=== PATIENT | female | born 1945 | race Caucasian/White ===

== ENCOUNTER 2018-06-02 19:08 | Inpatient (IN) | payer OTHER ==
[~2018-06-02] VITALS: Ht 154.9 cm; Wt 85.3 kg
--- NOTE | ~2018-06-02 | CON ---
[address] [address] CONSULTATION Name: FABRICE TREVINO Room: [address] IN M.R.#: [id number] Admission: 06/02/18 Attend Phys: Rod Razo, Discharge: Date of : 49 Report #: [id number] THIS REPORT FOR: //name// CC: Javier Razo DICTATED BY: Sandra DESIR DATE OF SERVICE: 06/04/2018 Please note at the time of this dictation, the patient was seen and physically examined by myself. REASON FOR CONSULTATION: Acute on chronic anemia. HISTORY OF PRESENT ILLNESS: This is a 73-year-old female who presented to the Emergency Room after being called by her PCP whom she saw last week for worsening of her fatigue and was told to go to the Emergency Room, because her hemoglobin was 6.2. The patient had stated that she had had normal stools without any diarrhea, no hematochezia that she had noted. She denied no vomiting; however, she has ongoing nausea, which she states over the last couple of weeks has worsened as well. She does take antiemetics to help with this. In reviewing her records, it was noted in 2013, she had gastroparesis documented by [facility] which showed after 2 hours, she was still retaining 96%. At 3 hours, she was at 70% and 4 hours was 32% and questioning the patient in regards to if she took metoclopramide at that time, she thinks that she did and that she had a reaction to taking it and that it made her lose her memory. The patient was seen by us back in also in 2013. She also underwent an EGD, which was completely normal. In 2017, she was seen again in the hospital for anemia, but did not get any EGD or colonoscopy done prior to her discharge. She came in as followup and was scheduled for an outpatient double, but family later canceled thinking that she would not be able to tolerate it. The patient is wheelchair bound due to her previous stroke in 2014. It would likely be that she needs to get a colonoscopy during this admission as well. She denies any bright red blood or any melena. She does state that prior to defecation, she will have a little bit of left lower quadrant pain that is only prior to her having a bowel movement. Her cares for her at home and he states he has only noticed every once in a while a streak of some bright red blood, but nothing overt and bleeding. The patient is on warfarin for her atrial fibrillation. ALLERGIES: INCLUDE BACTRIM. MEDICATIONS FROM HOME: Warfarin, simvastatin, Zoloft, melatonin, Zyrtec, Glucophage, Amaryl, Toprol, multivitamin, Lanoxin, Neurontin, Prinivil, hydrocodone, Protonix, mag ox, [place] [address] CONSULTATION Name: PATRIAJACOBFABRICE CASILLAS Room: [address]#: [id number] Admission: 06/02/18 Attend Phys: Rod Razo, Discharge: Date of : 49 Report #: [id number] PAST MEDICAL HISTORY: Hypertension, chronic atrial fib, diabetes, hypercholesterolemia. She had a stroke in 2007. PAST SURGICAL HISTORY: She has had nephrolithiasis with stent placement and a lithotripsy for stone manipulation in the past. FAMILY HISTORY: Negative. SOCIAL HISTORY: Denies any alcohol, tobacco or illegal drug use. REVIEW OF SYSTEMS: Twelve-point review of systems is essentially negative except what is mentioned in the HPI. PHYSICAL EXAMINATION: VITAL SIGNS: Temperature 36.4, pulse 81, respirations 16, blood pressure 179/69. HEART: Irregular rate and rhythm with murmur noted. LUNGS: Diminished, but clear. ABDOMEN: Soft, positive bowel sounds in all four quadrants with no masses or tenderness noted at this time. LABORATORY DATA: Hemoglobin in the ER was 7.1. She was 6.8 this morning, white count 9.3, MCV is 68.3, platelets 238. BUN is 12, creatinine is 0.9, GFR is 62. Her ferritin is 29. Iron is 20. PT is 17.9, INR is 1.8 and she did have a positive direct Babatunde. Fibrinogen was 399. D-dimer was 0.46. Chest x-ray showed some cardiomegaly and suggesting of some atelectasis. IMPRESSION: 1. Acute on chronic anemia, last seen in 2017 for similar cause, canceled EGD colon as an outpatient. 2. Nausea, recurrent, but worsening. 3. History of gastroparesis in 2013 from [facility] noted. 4. Anticoagulant therapy warfarin secondary to atrial fibrillation. 5. History of cerebrovascular accident. 6. Diabetes. PLAN: 1. Recheck a PT/INR this a.m. 2. EGD later today if INR improved. 3. The patient will likely need a colonoscopy before she leaves during this hospitalization since it has not been done and she canceled her outpatient back in 2017. 4. Await further recommendations from Dr. Cr after the procedure later today. [address] [address] CONSULTATION Name: FABRICE TREVINO Room: [address]#: [id number] Admission: 06/02/18 Attend Phys: Rod Razo, Discharge: Date of : 49 Report #: [id number] Thank you for allowing us to participate in this patient's care. Please do not hesitate to call with any questions in regard to this consult. By: 0902 1913Alli Cr MD /jonas
[~2018-06-02 19:08] MED LIST: ACETAMINOPHEN325 M1 PO; AMARYL4 MG PO; AMBIEN 10 MG TA10 MG PO; AMITRIPTYLINE H10 M1 PO; AMLODIPINE BESY10 MG PO; APAP500; CEFTIN 250 MG250 MG PO; CEFUROXIME250 MG PO; CELEXA; CIPRO PO; CIPRO500 MG PO; CIPRO500 MG/5 M; CIPROFLOXACIN500 M1 PO; COUMADIN 1MG TAB1 M1 PO; COUMADIN 2 MG TA2 M1 PO; COUMADIN 5 MG TA5 M1; COUMADIN 5 MG TA5 M1 PO; CYMBALTA30 MG PO; DIFLUCAN PO; DIFLUCAN150 MG PO; DIFLUCAN200 MG PO; DIGOXIN250 MCG PO; ERTACZO60 GM TP; FENTANYL PATCH75 MCG TOP; FLOMAX; FLOMAX PO; FLORASTOR250 MG PO; GLUCOPHAGE XR500 MG; GLUCOPHAGE XR500 MG PO; GLUCOPHAGE1000 MG PO; GLUCOPHAGE500 MG PO; HYDROCODON-ACE1 EAC7 PO; HYDROCODON-ACE1 EAC8 PO; KEFLEX250 MG PO; KEFLEX500 MG PO; LAMISIL15 GM TP; LANOXIN 0.250.25 M1 PO; LEVEMIR; LEVEMIR SUBQ; LIPITOR 20 MG T20 M1 PO; LISINOPRIL20 MG PO; LOPRESSOR 12.12.5 MG PO; LOPRESSOR25 PO; MACROBID 100 M100 M1 PO; MACROBID 100 M100 M2 PO; MACROBID OR; MAGNESIUM400 MG PO; MAGOX 400400 MG PO; METOPROLOL SUCC25 M1 PO; MYLANTA 12 OZ355 M1 PO; NEURONTIN 300300 M1 PO; NEURONTIN 300M300 M2 PO; NEURONTIN600 MG PO; NORVASC 5 MG TAB5 MG; NOVOLIN R100 UNIT/1 SUBQ; NOVOLOG100 UNIT/1; NOVOLOG100 UNIT/1 SUBQ; ONDANSETRON HCL4 M2 PO; ONE-A-DAY WOMENS PO; PANTOPRAZOLE SO40 M1 PO; PERCOCET PO; PRINIVIL10 MG PO; PRINIVIL20 MG PO; PROTONIX40 M1 PO; PROTONIX40 M2 PO; PYRIDIUM200 MG PO; SERTRALINE HCL50 MG PO; SIMVASTATIN20 MG PO; TOPROL XL25 MG; TOPROL XL25 MG PO; TYLENOL EX-STR500 M2; VAGIFEM10 MCG VAG; WARFARIN SODIUM2 MG PO; ZANAFLEX4 MG PO; ZANTAC; ZANTAC 150MG T150 M1 PO; ZESTRIL10 MG PO; ZOCOR; ZOCOR 20 MG TAB20 M1; ZOCOR 20 MG TAB20 M1 PO; ZOCOR20 MG PO
[2018-06-02 19:21] VITALS: BP 147/63
[2018-06-02 19:43] LABS: ABSOLUTE EOSINOPHILS 0.3 thou/uL (0.0-0.7); ABSOLUTE LYMPHOCYTES 1.4 thou/uL (0.8-5.3); ABSOLUTE MONOCYTES 0.5 thou/uL (0.0-1.2); ABSOLUTE NEUTROPHILS 5.8 thou/uL (1.6-8.1); BASOPHILS 0.6 %; EOSINOPHILS 4.2 %; HEMATOCRIT 21.7 % (37.0-47.0); LYMPHOCYTES 17.1 %; MCH 19.1 pg (26.0-34.0); MCHC 29.2 g/dL (28.0-37.0); MCV 65.4 fL (80.0-100.0); MONOCYTES 6.1 %; MPV 6.3 fl. (7.2-11.1); NUCLEATED RBCS 0 /100WBC; PLATELET COUNT* 292 thou/uL (150-400); RBC 3.31 mil/uL (4.20-5.00); RDW-CV 20.7 % (10.5-14.5); WBC 8.1 thou/uL (4.0-11.0)
[2018-06-02 19:46] LABS: HEMOGLOBIN 6.3 gm/dL (12.0-15.0)
[2018-06-02 19:54] LABS: INR 1.8; PROTIME 17.9 Seconds (9.20-11.50)
[2018-06-02 20:00] LABS: ANION GAP 11 mmol/L (7-16); BUN 18 mg/dL (7-18); CALCIUM 8.8 mg/dL (8.5-10.1); CHLORIDE 107 mmol/L (98-107); CO2 27 mmol/L (21-32); CREATININE 1.1 mg/dL (0.6-1.3); GLUCOSE 142 mg/dL (70-99); POTASSIUM 4.7 mmol/L (3.5-5.1); SODIUM 145 mmol/L (136-145); TROPONIN-I LEVEL <0.06 ng/mL (<0.06)
[2018-06-02] MEDS ORDERED: COUMADIN 4 MG TA4 M1 PO (20:02)
[2018-06-02] MEDS ORDERED: ALLERGY10 M1 PO (20:03)
[2018-06-02] MEDS ORDERED: ZOLOFT 50 MG TA50 M1 PO (20:03)
[2018-06-02] MEDS ORDERED: MELATONIN5 M1 PO (20:03)
[2018-06-02] MEDS ORDERED: SIMVASTATIN40 MG PO (20:03)
[2018-06-02 20:08] LABS: ALBUMIN 3.4 g/dL (3.4-5.0); ALKALINE PHOSPHATASE 38 U/L (46-116); NT-PRO BRAIN NAT PEPTIDE 1307 pg/mL (<300); SGOT 16 U/L (15-37); SGPT 15 U/L (30-65); TOTAL BILIRUBIN 0.3 mg/dL (<0.1-1.0); TOTAL PROTEIN 7.2 g/dL (6.4-8.2)
[2018-06-02 20:11] LABS: MICROCYTES 2+; PLATELET ESTIMATE ADEQUATE
[2018-06-02 20:12] LABS: HYPOCHROMASIA 3+; POLYCHROMASIA Occasional
[2018-06-02 20:13] LABS: ANISOCYTOSIS 2+
[2018-06-02 22:00] VITALS: BP 145/51
[2018-06-02 22:20] VITALS: BP 126/48
[2018-06-02 22:34] VITALS: BP 145/41; BP 152/46; BP 178/78; BP 181/71
[2018-06-02] MEDS ORDERED: NORCO 10-325 T1 EACH PO (23:43)
[2018-06-02] MEDS ORDERED: NOVOLOG100 UNIT/1 SUBQ (23:44)
[2018-06-03] MEDS ORDERED: TYLENOL325 MG PO (02:46)
[2018-06-03 03:33] VITALS: BP 150/39
[2018-06-03 03:40] LABS: HEMATOCRIT 23.6 % (37.0-47.0)
--- NOTE | 2018-06-03 04:25 | NUR ---
RECEIVED REPORT AND ASSUMED CARE OF PATIENT FROM ER. PATIENT EDUCATED ON PLAN OF CARE AND BLOOD TRANSFUSION. PT AND VERBALIZE UNDERSTANDING WITH NO QUESTIONS. PATIENT TOLERATED ONE UNIT OF BLOOD. HGB RECHECKED ONE HOUR POST TRANSFUSION, 7.0. RESULTS RELAYED TO DR. SOLIMAN. ORDERS TO RECHECK CBC IN 6 HOURS RECEIVED AND ENTERED. PATIENT HAD C/O HEADACHE, GIVEN ICE PACK ON NECK, COLD WASH RAG ON FOREHEAD, AND TYLENOL WITH RELIEF. PURE WICK CATHETER PLACED DUE TO INCONTINENCE AND IMPAIRED SKIN INTEGRITY. LEFT SIDED HEMIPARESIS FROM PREVIOUS CVA NOTED, LEFT LEG AND LEFT ARM SWOLLEN, PILLOWS PLACED FOR ELEVATION. NO SCDS IN PLACE DUE TO SWELLING AND PLAN FOR ULTRASOUND TODAY. PATIENT SLEEPING AT THIS TIME. CALL LIGHT WITHIN REACH.
[2018-06-03 07:59] VITALS: BP 183/58
--- NOTE | 2018-06-03 10:35 | NUR ---
Pt is A&O. Resides at home with her and 3 sons. Pt states that her sons complete all IADLs. Pt uses a power wc for mobility and requires assistance with transfers. Pt's has dementia and is current with [facility], sons are currently at home with . Pt stated that she requires assistance with ADLs, so she completes them "hit or miss." Pt stated that she is suppose to have a meeting with a [facility] nurse tomorrow to discuss in home options available to her at home. Pt wears home o2 at [facility] through [employer]. Hx of [facility]. Hx of skilled at [facility]. Plan is to return home at [place], with HH. CM will ask [facility] to review referral to determine if they are able to accept Pt at [place].
--- NOTE | 2018-06-03 10:52 | NUR ---
Pt is A&O. Resides at home with her . completes all IADLs. Pt uses a power wc for mobility. Has home o2 through [employer], uses a night only. H[facility] of [facility] . Hx of skilled at [facility]. Pt has a friend that comes in twice a week to assist with bathing and grooming. Goal is home at [place], no needs anticipated. will be able to transport.
[2018-06-03 10:57] LABS: HEMATOCRIT 23.7 % (37.0-47.0); HEMOGLOBIN 7.1 gm/dL (12.0-15.0); MCH 20.4 pg (26.0-34.0); MCHC 29.9 g/dL (28.0-37.0); MCV 68.3 fL (80.0-100.0); MPV 6.9 fl. (7.2-11.1); RBC 3.47 mil/uL (4.20-5.00); RDW-CV 23.7 % (10.5-14.5); WBC 7.4 thou/uL (4.0-11.0)
--- NOTE | 2018-06-03 11:00 | NUR ---
REPORT GIVEN TO DANIEL SMITH AT 1100.
[2018-06-03 11:57] LABS: % SATURATION 5 % (20-39); IRON 20 ug/dL (50-175)
[2018-06-03 12:00] VITALS: BP 175/74
--- NOTE | 2018-06-03 12:57 | NUR ---
Nutrition: Pt admitted for altered lab values, anemia. Was given a unit of blood. H/o DM, HTN, afib, HLD. Consult was received for wound. Per RN notes, pt has impaired skin integrity. Wt: 191#. BG 266, Hgb 7.1, albumin 3.4. Physician indicated severe anemia and moderate PCM - defer DX. No nutrition interventions needed at this time. Will follow for po intake, labs. Mild risk.
--- NOTE | 2018-06-03 12:57 | NUR ---
ASSUMED CARE OF PT AT APPROX 1030. PT ALERT AND ORIENTED AND ALL VSS. PT C/O NAUSEA AND ABD PAIN-MEDICATED PER EMAR WITH PARTIAL RELIEF-MD AWARE. AGREE WITH PRIOR NURSE ASSESSMENT. EDUCATED ON SAFTEY AND PLAN OF CARE. WILL CONT TO MONITOR
--- NOTE | 2018-06-03 13:26 | EKG ---
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: Chelsea DIAMOND : 1945 Requested By: Erum Schultz Order Number: [id number] MD: Javier Buchanan Measurements Intervals [place] Rate: 69 P: [place]: QRS: 122 QRSD: 100 T: -16 QT: 435 QTc: 466 Interpretive Statements Atrial fibrillation Left posterior fascicular block Anterior infarct, old Borderline T abnormalities, inferior leads Compared to ECG 11/11/2016 22:51:30 Left posterior fascicular block now present T-wave abnormality now present Sinus bradycardia no longer present Left-axis deviation no longer present Myocardial infarct finding still present Electronically Signed On 06-03-2018 13:26:09 CDT by Javier Buchanan [email or web address] <ELECTRONICALLY SIGNED> By: Jaiver Buchanan MD, [facility] 06/03/18 1326 51 51 Javier Buchanan MD, [facility] /EPI
[2018-06-03 16:58] VITALS: BP 149/74
[2018-06-03 19:30] VITALS: BP 183/64
[2018-06-04] VITALS (8 sets, daily range): BP systolic 127–198; BP diastolic 51–103
--- NOTE | 2018-06-04 04:18 | NUR ---
ASSUMED CARE OF PT AT 1900. PT IS ALERT AND ORIENTED. VSS. PERRLA. NO COMPLAINTS OF PAIN. PT IS A Q2TURN. PT IS FLACCID ON THE LEFT SIDE. PT IS IN A FIB ON THE TELEMETRY. PT IS RESTING COMFORTABLY IN BED. RESPIRATIONS ARE EVEN AND NONLABORED. WILL CONTINUE TO MONITOR PT.
[2018-06-04 05:23] LABS: HEMATOCRIT 22.5 % (37.0-47.0); MCH 20.9 pg (26.0-34.0); MCHC 30.3 g/dL (28.0-37.0); MCV 68.9 fL (80.0-100.0); MPV 6.7 fl. (7.2-11.1); RBC 3.26 mil/uL (4.20-5.00); RDW-CV 24.4 % (10.5-14.5); WBC 9.3 thou/uL (4.0-11.0)
[2018-06-04 05:40] LABS: CALCIUM 8.5 mg/dL (8.5-10.1); CREATININE 0.9 mg/dL (0.6-1.3); MAGNESIUM 1.5 mg/dL (1.8-2.4)
[2018-06-04 06:08] LABS: HEMOGLOBIN 6.8 gm/dL (12.0-15.0)
[2018-06-04 08:45] LABS: INR 1.2; PROTIME 12.7 Seconds (9.20-11.50)
[2018-06-04 11:14] LABS: CALCIUM 8.4 mg/dL (8.5-10.1); CREATININE 0.9 mg/dL (0.6-1.3); MAGNESIUM 1.5 mg/dL (1.8-2.4); POTASSIUM 4.2 mmol/L (3.5-5.1)
--- NOTE | 2018-06-04 13:55 | NUR ---
RECEIVED REPORT FROM WADE SANCHEZ. ASSUMED CARE OF PT AROUND 0730. PT A&O X4, FORGETFULL AT TIMES, AND SOMETIMES SLOW TO RESPOND. VERY PLEASANT. VSS. 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 AM ASSESSMENT AND VITALS COMPLETED CHARTED. FAMILY AT BEDSIDE. IV INFUSING. MEDS PER EMAR. PT NPO THIS AM FOR EGD THIS AFTERNOON. PT HAS DENIED PAIN OR DISCOMFORT THIS SHIFT. PT USING PUREWICK CATHETER, NO ISSUES URINE YELLOW. PT BEING TURNED Q2HRS FOR SKIN INTEGRITY. PT DOWN IN PACU AT THIS TIME. WILL AWAIT PT RETURN TO UNIT.
--- NOTE | 2018-06-04 15:58 | NUR ---
SPOKE TO DR ROBERTSON REGRADING PT'S POSITIVE TERRY MIRZA TEST. HE SAID THAT LONG THE BLOOD WAS MATCHING, IT WAS ALRIGHT TO TRANSFUSE ONE MORE UNIT.
--- NOTE | 2018-06-04 19:43 | NUR ---
VSS. 1 UNIT OF BLOOD TRANSFUSING. PT SEEMS FLUID OVERLOADED - MESSAGED DR FARIA - ORDER GIVEN FOR 40MG LASIX IV PUSH ONETIME AFTER BLOOD TRANSFUSION. AT BEDSIDE. PT DENIES PAIN OR DISCOMFORT. PT TO HAVE COLONOSCOPY TOMORROW. PUREWICK IN PLACE. PT BEING TURNED Q2HRS FOR SKIN INTEGRITY. CALL LIGHT IS WITHIN REACH. HOURLY ROUNDING PERFORMED. FALL PRECAUTIONS IN PLACE.
[2018-06-04 22:58] LABS: HEMATOCRIT 25.1 % (37.0-47.0); HEMOGLOBIN 7.8 gm/dL (12.0-15.0)
[2018-06-05 04:00] VITALS: BP 145/61
[2018-06-05 04:45] LABS: HEMATOCRIT 26.7 % (37.0-47.0); HEMOGLOBIN 8.2 gm/dL (12.0-15.0); MCH 21.7 pg (26.0-34.0); MCHC 30.5 g/dL (28.0-37.0); MPV 6.6 fl. (7.2-11.1); RBC 3.76 mil/uL (4.20-5.00); RDW-CV 26.2 % (10.5-14.5); WBC 6.4 thou/uL (4.0-11.0)
[2018-06-05 05:13] LABS: ALBUMIN 3.1 g/dL (3.4-5.0); CALCIUM 8.9 mg/dL (8.5-10.1); MAGNESIUM 1.7 mg/dL (1.8-2.4); POTASSIUM 3.8 mmol/L (3.5-5.1); TOTAL BILIRUBIN 0.6 mg/dL (<0.1-1.0); TOTAL PROTEIN 6.6 g/dL (6.4-8.2)
--- NOTE | 2018-06-05 06:23 | NUR ---
PT CARE ASSUMED AT 1930. SAT MAINTAINED IN NV. C/O PAIN, MEDICATION GIVEN PER EMAR. CALL LIGHT WITHIN REACH AND BED IN LOW POSITION. ALERT AND ORIENTED X4, FOGETFUL AT TIMES. HOURLY ROUNDING DONE FOR PT SAFETY.
[2018-06-05 08:00] VITALS: BP 184/72
--- NOTE | 2018-06-05 08:00 | NUR ---
RECEIVED REPORT AND ASSUMED CARE OF PT AT 0730.PT IS A/OX4.FORGETFUL SOMETIMES.SEEMS DROWSY AND SLEEPY.TRACING A FIB ON THE MONITOR WITH RATE CONTROLLED ,HX OF AFIB.IV PATENT AND SALINE LOCKED.PLAN COLONOSCOPY TODAY.BOWEL PREP DONE.WARFARIN ON HOLD.REDNESS OB THE BOTTOM AREA.WOUND NURSE CONS.NO EDEMA,NO PAIN.CALL LIGHT AND FALL PRECAUTIONS IN PLACE.WILL CONTINUE TO MONITOR.
[2018-06-05 11:48] VITALS: BP 132/43
--- NOTE | 2018-06-05 15:07 | NUR ---
WOUND NURSE- ATTEMPTED TO SEE PATIENT EARLIER, BUT WAS GONE FOR COLONOSCOPY AND THEN NOW WAS FINISHING UP ECHOCARDIOGRAM. ASSISTED WITH TRANSFERRING PATIENT ON AND OFF OF BEDPAN FOR LOOSE STOOL. PERICARE PROVIDED BY NURSE, NOTING EXTENSIVE CHRONIC APPEARING DARK PURPLE DISCOLORATION ACROSS BILATERAL LOWER BUTTOCKS, CONSISTENT WITH SKIN CHANGES ASSOCIATED WITH MORBID OBESITY, MOISTURE AND PROLONGED SITTING. PATIENT CONFIRMS THAT SHE SITS IN CHAIR OR BED ALL DAY. ONE PINPOINT SCABBED AREA ON RIGHT BUTTOCKS - NO ACUTE PRESSURE RELATED SKIN CHANGES. MILD TO MODERATE INTERTRIGO UNDER RIGHT BREAST (APPROXIMATELY 14 X 4 CM) AND IN RIGHT GROIN FOLD (APPROXIMATELY 8 X 1.8 CM). POSSIBLE FUNGAL COMPONENT AND PATIENT REQUESTING ANTIFUNGAL OINTMENT. LEFT BREAST AND GROIN WITH SKIN INTACT. AREAS CLEANSED WELL WITH BODY WASH, RINSED WELL, PATTED DRY AND ANTIFUNGAL OINTMENT APPLIED TO REDDENED AREAS. INTERDRY AG APPLIED TO BILATERAL BREAST AND GROIN FOLDS. PATIENT WITH SMALL HEALING LESION ON LEFT LOWER ABDOMEN, 0.8 X 0.6 X 0.3 CM. WOUND BASE WITH DRY YELLOW TISSUE. NO DRAINAGE OR ERYTHEMA. AREA CLEANSED WELL, AND APPLIED SMALL AMOUNT OF SILVERMED GEL AND SMALL FOAM DRESSING. HEELS INTACT, NO ERYTHEMA. LEGS ELEVATED ON PILLOWS, WITH HEELS SUSPENDED OFF OF BED.
[2018-06-05 16:05] VITALS: BP 171/70
--- NOTE | 2018-06-05 16:16 | 2DMMODE ---
[place] [address] 2 D/M-MODE ECHOCARDIOGRAM Name: FABRICE TREVINO Room: [address] IN [facility]#: [id number] Admission: 06/02/18 Attend Phys: Rod Almazan Discharge: Date of : 49 Date of Service: 06/05/18 1616 Report #: [id number] THIS REPORT FOR: //name// APPROVED REPORT Study performed: 06/05/2018 13:51:10 EXAM: Comprehensive 2D, Doppler, and color-flow Echocardiogram Patient Location: In-Patient Room #: 220 Status: routine BSA: 1.88 HR: 87 bpm BP: 184/72 mmHg Rhythm: NSR Other Information Study Quality: Good Indications Pulmonary Hypertension 2D Dimensions IVSd: 15.61 (7-11mm) LVOT Diam: 20.41 (18-24mm) LVDd: 36.85 mm PWd: 11.21 (7-11mm) Ascending Ao: 35.00 (22-36mm) LVDs: 18.38 (25-40mm) Aortic Root: 32.80 mm Volumes Left Atrial Volume (Systole) LA ESV Index: 68.50 mL/m2 Aortic Valve AoV Peak Odilon.: 2.73 m/s AO Peak Gr.: 29.86 mmHg LVOT Max P.43 mmHg AO Mean Gr.: 15.72 mmHg LVOT Mean P.39 mmHg LVOT Max V: 1.36 m/s AO V2 VTI: 47.08 cm LVOT Mean V: 0.84 m/s ROZ (VTI): 1.73 cm2 LVOT V1 VTI: 24.92 cm TDI Medial E' Odilon.: 0.11 m/s Lateral E' Odilon.: 0.10 m/[place] [address] 2 D/M-MODE ECHOCARDIOGRAM Name: FABRICE TREVINO Room: [address] IN ..#: [id number] Admission: 06/02/18 Attend Phys: Rod Almazan Discharge: Date of : 49 Date of Service: 06/05/18 1616 Report #: [id number] Pulmonary Valve PV Peak Odilon.: 1.38 m/s PV Peak Gr.: 7.66 mmHg Left Ventricle The left ventricle is normal size. There is normal LV segmental wall motion. Moderate concentric left ventricular hypertrophy. Left ventricular systolic function is normal. The left ventricular ejection fraction is within the normal range. LVEF is 65%. Grade IV - fixed restrictive diastolic dysfunction. Right Ventricle The right ventricle is normal size. The right ventricular systolic function is normal. Atria Left atrium is moderately dilated. The right atrium size is normal. Aortic Valve Mild aortic valve sclerosis. No aortic regurgitation is present. Mild aortic stenosis. Mitral Valve There is mitral annular calcification. Mild mitral regurgitation. No evidence of mitral valve stenosis. Tricuspid Valve The tricuspid valve is normal in structure. Trace tricuspid regurgitation. Unable to assess PA pressure. Pulmonic Valve The pulmonary valve is normal in structure. Trace pulmonic regurgitation. Great Vessels The aortic root is normal in size. IVC is normal in size and collapses >50% with inspiration. Pericardium There is no pericardial effusion. <Conclusion> The left ventricle is normal size. Moderate concentric left ventricular hypertrophy. Left ventricular systolic function is normal. The left ventricular ejection fraction [place] [address] 2 D/M-MODE ECHOCARDIOGRAM Name: CANDELARIO TREVINOLópez Wiggins Room: [address]#: [id number] Admission: 06/02/18 Attend Phys: Rod Almazan Discharge: Date of : 49 Date of Service: 06/05/18 1616 Report #: [id number] range. The right ventricle is normal size. Left atrium is moderately dilated. The right atrium size is normal. Mild aortic valve sclerosis. No aortic regurgitation is present. Mild aortic stenosis. There is mitral annular calcification. Mild mitral regurgitation. No evidence of mitral valve stenosis. The tricuspid valve is normal in structure. IVC is normal in size and collapses >50% with inspiration. There is no pericardial effusion. There is normal LV segmental wall motion. LVEF is 65%. <ELECTRONICALLY SIGNED> By: Nasir Gipson MD, FACC 06/05/18 1616 15 161 Nasir Gipson MD, FACC /INF
--- NOTE | 2018-06-05 17:29 | CON ---
[address] [address] CONSULTATION Name: FABRICE TREVINO Room: [address] IN M.R.#: [id number] Admission: 06/02/18 Attend Phys: Rod Razo, Discharge: Date of : 49 Report #: [id number] THIS REPORT FOR: //name// CC: Javier Razo DATE OF SERVICE: 06/03/2018 DIAGNOSIS: Microcytic anemia. HISTORY OF PRESENT ILLNESS: A 73-year-old female who has multiple comorbidities including hypertension, diabetes, dyslipidemia, AFib and stroke who has been on Coumadin. She has been following with Dr. Mckeon and hemoglobin noted to be low at 6.1. Upon evaluation at the Emergency Room, her hemoglobin was 6.3. The patient has a significant history of anemia. She received 1 unit of blood transfusion. Reviewing her prior hemoglobin showed that around 2014 she started becoming microcytic anemia. Her MCV has been low since 10/2016. The patient denies any blood in stool. She had occult blood, which came back negative. The patient denies any vaginal bleeding, no blood in the urine. No gross hematuria. However, back in 2016 her blood was at 3+ for urine. The patient had initial iron studies at the hospital, which showed her iron was low at 20, TIBC 416, saturation 5%. By the time of evaluation, the patient has been feeling significantly better. Her B12 was also adequate, 554. Folate back in 10/2016 was 46.6. The patient has been anticoagulated with Coumadin. REVIEW OF SYSTEMS: All systems were reviewed, was negative except the above. PAST MEDICAL HISTORY: Diabetes mellitus, hypertension, dyslipidemia, AFib, and CVA. MEDICATIONS: Per admission list. ALLERGIES: SULFA AND BACTRIM. SOCIAL HISTORY: No smoking, no alcohol abuse, no drug abuse. FAMILY HISTORY: Noncontributory. PHYSICAL EXAMINATION: VITAL SIGNS: Today, temperature is 36.9, pulse 77, respirations 17, blood pressure is 149/74, SpO2 is 97% on room air. GENERAL: The patient was lying in bed. She was not in acute distress. LUNGS: Clear to auscultations bilaterally. HEART: With regular rate and rhythm. S1, S2 within normal limits. ABDOMEN: Soft, nontender, nondistended, [place] [address] CONSULTATION Name: FABRICE TREVINO Feliciano Room: [address]#: [id number] Admission: 06/02/18 Attend Phys: Rod Razo, Discharge: Date of : 49 Report #: [id number] EXTREMITIES: +1 edema bilaterally. LABORATORY DATA: Today, WBC 7.4, hemoglobin 7.1, MCV 68.3, platelets 236. PT 17.9, INR is 1.8. Creatinine 1.1. IMAGING: Venous Doppler showed no evidence of left upper extremity DVT, no DVT in the left lower extremity. Chest x-ray showed cardiomegaly without failure, mild increased medial basilar density suggestive of atelectasis. ASSESSMENT AND PLAN: 1. A 73-year-old female who is being evaluated because of severe anemia requiring transfusion. She had microcytosis. Reviewing her labs, this started around 6 months ago. The patient does not have any clinical signs suggestive of a gastrointestinal bleed; however, I would like to repeat her urinalysis. 2. We will arrange for IV iron. Also, I am waiting on her ferritin level. If her workup is inconclusive, the next step will be obtaining a bone marrow biopsy. <ELECTRONICALLY SIGNED> By: Scarlet Wong MD 06/05/18 1729 1732 [id number] Wong MD /nt
--- NOTE | 2018-06-05 18:03 | NUR ---
VSS.A/OX4.TRACINF AFIB ON THE MONITOR. ON 2 L NC.IV PATENT AND SALINE LOCKED.COLONOSCOPY COMPLETED.DIET RESUMED.Q 2 TURN.IV PATENT AND SALINE LOCKED.WOUND NURSE CONSULTED.PICTURES TAKEN AND CHARTED.CALL LIGHT AND FALL PRECAUTIONS IN PLACE.WILL CONTINUE TO MONITOR.
[2018-06-05 20:00] VITALS: BP 176/77
[2018-06-06] VITALS: BP 184/66
[2018-06-06 04:06] VITALS: BP 171/59
--- NOTE | 2018-06-06 04:57 | NUR ---
PT CARE ASSUMED AT 1930. SAT MAINTAINED IN [place]. ALERT AND ORIENTED X4. CALL LIGHT WITHIN REACH AND BED IN LOW POSITION. C/O PAIN, MEDICATION GIVEN PER EMAR. HOURLY ROUNDING DONE FOR PT SAFETY.
[2018-06-06 05:02] LABS: HEMATOCRIT 24.5 % (37.0-47.0); HEMOGLOBIN 7.5 gm/dL (12.0-15.0); MCHC 30.7 g/dL (28.0-37.0); MCV 71.8 fL (80.0-100.0); RBC 3.42 mil/uL (4.20-5.00); RDW-CV 26.6 % (10.5-14.5); WBC 7.1 thou/uL (4.0-11.0)
[2018-06-06 06:06] LABS: CALCIUM 8.8 mg/dL (8.5-10.1); CREATININE 1.1 mg/dL (0.6-1.3); POTASSIUM 3.9 mmol/L (3.5-5.1)
[2018-06-06 08:00] VITALS: BP 186/78
[2018-06-06] MEDS ORDERED: PROTONIX40 M1 PO (10:51)
[2018-06-06] MEDS ORDERED: GLUCOPHAGE XR500 MG PO (10:51)
[2018-06-06] MEDS ORDERED: NORVASC10 MG PO (10:52)
[2018-06-06] MEDS ORDERED: POTASSIUM20 PO (11:01)
[2018-06-06] MEDS ORDERED: LASIX 20 MG TAB20 MG PO (11:01)
[2018-06-06 12:09] VITALS: BP 189/73
[2018-06-06 12:54] VITALS: BP 189/73
--- NOTE | 2018-06-06 13:04 | NUR ---
PT.TO DISCHARGE HOME TODAY WITH . SHE HAS ORDERS FOR HOME HEALTH. REFERRAL MADE TO [facility] LAST WEEK. FAXED FACE SHEET AND DISCHARGE SUMMARY TO [facility]. THEY WILL CALL HER TO SET UP APPT.TIMES. INFORMATION PUT IN DISCHARGE INSTRUCTIONS.
--- NOTE | 2018-06-06 14:53 | NUR ---
ORDER RECEIVED TO DISCHARGE PATIENT HOME TO CARE WITH HOME HEALTH. MED REC, MEDICATION EDUCATION, STROKE EDUCATION, AND NEED FOR FOLLOW UP APPOINTMENTS WITH HEMATOLOGY AND GI. IV AND TELEMETRY PACK REOMVED AND PATIENT UTILIZED HER POWERED WHEELCHAIR TO DISCHARGE HOME WITH CAREGIVER AND NURSING STAFF PRESENT. HOURLY ROUNDING COMPLETED FOR PATINET SAFETY. PATIENT IN NO APPARENT SIGND OF DSITRESS AT TIME OF DISCHARGE. DISCHARGE TIME OF 13:30.
== END 2018-06-06 13:30 | disposition home health service (06) | DRG 811 ==
LOC: M.ERS 19:08 → M.2W 21:39 → M.TBA-ER 21:39 → M.2W 21:48
PROVIDERS: Emergency Medicine; Internal Medicine; Nurse Practitioner Adult Health; ADMIT Family Medicine
PROC: 30233N1 Transfusion of Nonautologous Red Blood Cells into Peripheral Vein, Percutaneous Approach (ICD-10-PCS; principal; 2018-06-02)
PROC: 0DJ08ZZ Inspection of Upper Intestinal Tract, Via Natural or Artificial Opening Endoscopic (ICD-10-PCS; 2018-06-04)
PROC: 0DJD8ZZ Inspection of Lower Intestinal Tract, Via Natural or Artificial Opening Endoscopic (ICD-10-PCS; 2018-06-05)
DX: D50.9 Iron deficiency anemia, unspecified (principal); J96.00 Acute respiratory failure, unspecified whether with hypoxia or hypercapnia; I50.33 Acute on chronic diastolic (congestive) heart failure; E44.0 Moderate protein-calorie malnutrition; I69.351 Hemiplegia and hemiparesis following cerebral infarction affecting right dominant side; I13.0 Hypertensive heart and chronic kidney disease with heart failure and stage 1 through stage 4 chronic kidney disease, or unspecified chronic kidney disease; K57.30 Diverticulosis of large intestine without perforation or abscess without bleeding; D62 Acute posthemorrhagic anemia; E78.5 Hyperlipidemia, unspecified; I48.2 Chronic atrial fibrillation; E11.22 Type 2 diabetes mellitus with diabetic chronic kidney disease; E78.00 Pure hypercholesterolemia, unspecified; N20.0 Calculus of kidney; E83.42 Hypomagnesemia; I27.20 Pulmonary hypertension, unspecified; G93.89 Other specified disorders of brain; K64.4 Residual hemorrhoidal skin tags; N18.3 Chronic kidney disease, stage 3 (moderate); Z88.2 Allergy status to sulfonamides; Z88.8 Allergy status to other drugs, medicaments and biological substances; Z79.01 Long term (current) use of anticoagulants; Z83.49 Family history of other endocrine, nutritional and metabolic diseases; Z68.35 Body mass index [BMI] 35.0-35.9, adult

== ENCOUNTER 2020-06-15 15:46 | Inpatient (IN) | payer OTHER ==
[~2020-06-15] VITALS: Ht 154.9 cm; Wt 88.0 kg
[~2020-06-15 15:46] MED LIST changes: +ALLERGY10 M1 PO; +COUMADIN 4 MG TA4 M1 PO; +LASIX 20 MG TAB20 MG PO; +MELATONIN5 M1 PO; +NORCO 10-325 T1 EACH PO; +NORVASC10 MG PO; +POTASSIUM20 PO; +SIMVASTATIN40 MG PO; +TYLENOL325 MG PO; +ZOLOFT 50 MG TA50 M1 PO
[2020-06-15 15:48] VITALS: BP 100/72
[2020-06-15 17:02] LABS: ABSOLUTE EOSINOPHILS 0.2 thou/uL (0.0-0.7); ABSOLUTE MONOCYTES 0.4 thou/uL (0.0-1.2); BASOPHILS 0.3 %; EOSINOPHILS 1.8 %; HEMATOCRIT 32.6 % (37.0-47.0); HEMOGLOBIN 10.4 gm/dL (12.0-15.0); LYMPHOCYTES 11.4 %; MCH 28.1 pg (26.0-34.0); MPV 6.9 fl. (7.2-11.1); NUCLEATED RBCS 0 /100WBC; PLATELET COUNT* 186 thou/uL (150-400); POLYS 81.5 %; RDW-CV 17.4 % (10.5-14.5); WBC 8.6 thou/uL (4.0-11.0)
[2020-06-15 17:08] LABS: CALCIUM 9.7 mg/dL (8.5-10.1); CREATININE 1.9 mg/dL (0.6-1.3); POTASSIUM 4.9 mmol/L (3.5-5.1)
[2020-06-15 17:13] LABS: ALBUMIN 3.4 g/dL (3.4-5.0); TOTAL BILIRUBIN 0.4 mg/dL (<0.1-1.0); TOTAL PROTEIN 7.6 g/dL (6.4-8.2)
[2020-06-15 20:35] VITALS: BP 161/67
[2020-06-15 21:00] VITALS: BP 184/86
[2020-06-16 07:45] VITALS: BP 172/52
[2020-06-16 13:37] LABS: INR 1.6; PROTIME 16.7 Seconds (9.20-11.50)
[2020-06-16 16:00] VITALS: BP 150/81
[2020-06-17 05:50] LABS: CALCIUM 8.5 mg/dL (8.5-10.1); CREATININE 1.3 mg/dL (0.6-1.3); POTASSIUM 4.3 mmol/L (3.5-5.1)
[2020-06-17 05:51] LABS: HEMATOCRIT 28.7 % (37.0-47.0); HEMOGLOBIN 9.3 gm/dL (12.0-15.0); MCH 28.4 pg (26.0-34.0); MCHC 32.5 g/dL (28.0-37.0); MCV 87.4 fL (80.0-100.0); MPV 7.1 fl. (7.2-11.1); RBC 3.28 mil/uL (4.20-5.00); RDW-CV 17.1 % (10.5-14.5); WBC 6.7 thou/uL (4.0-11.0)
[2020-06-17 10:59] VITALS: BP 140/61
[2020-06-17 16:00] VITALS: BP 161/59
[2020-06-17 20:36] VITALS: BP 122/37
[2020-06-18 05:45] LABS: HEMATOCRIT 27.1 % (37.0-47.0); HEMOGLOBIN 8.8 gm/dL (12.0-15.0); MCH 28.5 pg (26.0-34.0); MCHC 32.4 g/dL (28.0-37.0); MCV 87.9 fL (80.0-100.0); MPV 6.8 fl. (7.2-11.1); RBC 3.08 mil/uL (4.20-5.00); RDW-CV 17.1 % (10.5-14.5); WBC 6.5 thou/uL (4.0-11.0)
[2020-06-18 05:47] LABS: INR 1.4; PROTIME 14.3 Seconds (9.20-11.50)
[2020-06-18 05:58] LABS: ALBUMIN 2.8 g/dL (3.4-5.0); CALCIUM 8.3 mg/dL (8.5-10.1); CREATININE 1.4 mg/dL (0.6-1.3); POTASSIUM 4.8 mmol/L (3.5-5.1); TOTAL BILIRUBIN 0.4 mg/dL (<0.1-1.0); TOTAL PROTEIN 6.6 g/dL (6.4-8.2)
[2020-06-18 08:30] VITALS: BP 172/76
[2020-06-18 16:00] VITALS: BP 178/51
[2020-06-18 20:49] VITALS: BP 161/47
[2020-06-19 05:19] LABS: HEMATOCRIT 26.2 % (37.0-47.0); HEMOGLOBIN 8.5 gm/dL (12.0-15.0); MCH 28.4 pg (26.0-34.0); MCHC 32.6 g/dL (28.0-37.0); MPV 6.5 fl. (7.2-11.1); RBC 3.01 mil/uL (4.20-5.00); RDW-CV 16.9 % (10.5-14.5); WBC 6.7 thou/uL (4.0-11.0)
[2020-06-19 05:26] LABS: INR 1.5; PROTIME 15.7 Seconds (9.20-11.50)
[2020-06-19 05:45] LABS: ALBUMIN 2.8 g/dL (3.4-5.0); CALCIUM 8.3 mg/dL (8.5-10.1); CREATININE 1.2 mg/dL (0.6-1.3); POTASSIUM 4.9 mmol/L (3.5-5.1); TOTAL BILIRUBIN 0.4 mg/dL (<0.1-1.0); TOTAL PROTEIN 6.4 g/dL (6.4-8.2)
[2020-06-19 08:07] VITALS: BP 175/55
[2020-06-19 08:20] VITALS: BP 175/55
[2020-06-19 20:27] VITALS: BP 144/30
[2020-06-20 06:17] LABS: PROTIME 20.6 Seconds (9.20-11.50)
[2020-06-20 07:50] VITALS: BP 134/47
[2020-06-20] MEDS ORDERED: NEURONTIN 300M300 M2 PO (09:10)
[2020-06-20] MEDS ORDERED: TRAMADOL 50 MG50 MG PO ×2 (09:10→15:19)
[2020-06-20] MEDS ORDERED: JANTOVEN2 MG PO (09:10)
[2020-06-20] MEDS ORDERED: LIDOPATCH1 EACH TOP (09:10)
[2020-06-20] MEDS ORDERED: TOPROL XL50 MG PO (09:10)
[2020-06-20] MEDS ORDERED: NORCO7.5 PO ×3 (09:10→15:19)
[2020-06-20] MEDS ORDERED: ZOLOFT50 M1 PO (09:10)
[2020-06-20 09:36] VITALS: BP 134/47
== END 2020-06-20 13:40 | DRG 535 ==
LOC: M.ERS 15:46 → M.ORTHSURG 18:49 → M.TBA-ER 18:49 → M.ORTHSURG 20:45
PROVIDERS: Family Medicine; Internal Medicine; Physician Assistant; ADMIT Internal Medicine; ATTEND Internal Medicine
DX: S32.592A Other specified fracture of left pubis, initial encounter for closed fracture (principal); N17.0 Acute kidney failure with tubular necrosis; M80.052A Age-related osteoporosis with current pathological fracture, left femur, initial encounter for fracture; I48.20 Chronic atrial fibrillation, unspecified; I69.354 Hemiplegia and hemiparesis following cerebral infarction affecting left non-dominant side; R71.0 Precipitous drop in hematocrit; I10 Essential (primary) hypertension; E11.9 Type 2 diabetes mellitus without complications; E78.00 Pure hypercholesterolemia, unspecified; W18.39XA Other fall on same level, initial encounter; E78.5 Hyperlipidemia, unspecified; Z20.822 Contact with and (suspected) exposure to COVID-19; Z79.4 Long term (current) use of insulin; Z79.899 Other long term (current) drug therapy; Z88.2 Allergy status to sulfonamides; Y93.89 Activity, other specified; Y92.89 Other specified places as the place of occurrence of the external cause; Y99.8 Other external cause status

== ENCOUNTER 2020-08-18 22:13 | Inpatient (IN) | payer OTHER ==
[~2020-08-18] VITALS: Ht 160 cm; Wt 82.7 kg
[~2020-08-18 22:13] MED LIST changes: +JANTOVEN2 MG PO; +LIDOPATCH1 EACH TOP; +NORCO7.5 PO; +TOPROL XL50 MG PO; +TRAMADOL 50 MG50 MG PO; +ZOLOFT50 M1 PO
[2020-08-18 22:39] VITALS: BP 174/56
[2020-08-18 22:39] LABS: HEMATOCRIT 38.3 % (37.0-47.0); HEMOGLOBIN 12.8 gm/dL (12.0-15.0); MCH 29.4 pg (26.0-34.0); MCHC 33.4 g/dL (28.0-37.0); RBC 4.35 mil/uL (4.20-5.00); WBC 7.3 thou/uL (4.0-11.0)
[2020-08-18 22:52] LABS: APTT 23.6 Seconds (25.0-31.3); INR 1.5; PROTIME 15.4 Seconds (9.20-11.50)
[2020-08-18 22:53] LABS: CALCIUM 9.1 mg/dL (8.5-10.1); CREATININE 1.7 mg/dL (0.6-1.3); POTASSIUM 5.2 mmol/L (3.5-5.1)
[2020-08-18 22:58] LABS: ALBUMIN 3.3 g/dL (3.4-5.0); TOTAL BILIRUBIN 0.3 mg/dL (<0.1-1.0); TOTAL PROTEIN 7.7 g/dL (6.4-8.2)
[2020-08-18 22:59] LABS: PCO2 41.6 mmHg (35.0-45.0); PO2 66.8 mmHg (75.0-100.0); pH 7.424 (7.340-7.450)
[2020-08-19 01:05] LABS: URINE BILIRUBIN NEGATIVE (Negative); URINE BLOOD 1+ (Negative); URINE CLARITY CLEAR; URINE COLOR YELLOW; URINE GLUCOSE-RANDOM NEGATIVE (Negative); URINE KETONES NEGATIVE (Negative); URINE LEUKOCYTES 1+ (Negative); URINE NITRITE POSITIVE (Negative); URINE PROTEIN NEGATIVE (Negative); URINE SPECIFIC GRAVITY 1.015 (1.005-1.030); URINE UROBILINOGEN 0.2 E.U./dl (0.2-1.0)
[2020-08-19 01:19] LABS: BACTERIA >30 Many /HPF (None Seen); CASTS None Seen /LPF (None Seen); CRYSTALS None Seen /LPF (None Seen); MUCUS 0-3 Light strn/LPF (None Seen); SQUAMOUS 0-3 Few /LPF (0-3); URINE RBC 3-10 Few /HPF (0-2); URINE WBC >25 Many /HPF (0-5); WBC CLUMPS Moderate (None Seen)
[2020-08-19 02:40] VITALS: BP 175/65
--- NOTE | 2020-08-19 10:27 | NUR ---
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 SHE IS ABLE TO COMMUNICATE HER NEEDS TO STAFF EFFECTIVELY. CURRENT PAIN MEDICATION REGIMEN HAS BEEN ADEQUATE FOR CONTROLLING HER PAIN UP TO 0700 THIS MORNING. GIL REMAINS PATENT UP TO 0700 TODAY.
[2020-08-19 12:00] VITALS: BP 189/61
--- NOTE | 2020-08-19 14:00 | EKG ---
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1945 Requested By: Libia Plaza Order Number: [id number] MD: Rc Romero Measurements Intervals [place] Rate: 50 P: [place]: QRS: 169 QRSD: 93 T: 197 QT: 379 QTc: 346 Interpretive Statements Atrial fibrillation Anterolateral infarct, age indeterminate Compared to ECG 06/02/2018 19:52:58 Left posterior fascicular block no longer present T-wave abnormality no longer present Myocardial infarct finding still present Electronically Signed On 08-19-2020 14:00:12 CDT by Rc Romero [email or web address] <ELECTRONICALLY SIGNED> By: Rc Romero MD, FACC 08/19/20 1400 39 39 Rc Romero MD, [facility] /EPI
[2020-08-19 14:51] VITALS: BP 227/65
[2020-08-19 16:00] VITALS: BP 178/71
[2020-08-19 20:49] VITALS: BP 189/58
[2020-08-20] VITALS: BP 135/41
[2020-08-20 04:00] VITALS: BP 172/59
[2020-08-20 05:10] LABS: HEMATOCRIT 31.8 % (37.0-47.0); MCH 29.1 pg (26.0-34.0); MCHC 33.5 g/dL (28.0-37.0); MCV 86.9 fL (80.0-100.0); MPV 7.4 fl. (7.2-11.1); RBC 3.66 mil/uL (4.20-5.00); WBC 7.6 thou/uL (4.0-11.0)
[2020-08-20 05:17] LABS: ANION GAP 6 mmol/L (7-16); BUN 28 mg/dL (7-18); CALCIUM 7.9 mg/dL (8.5-10.1); CHLORIDE 106 mmol/L (98-107); CHOLESTEROL 144 mg/dL (<200); CO2 28 mmol/L (21-32); CREATININE 1.4 mg/dL (0.6-1.3); GLUCOSE 150 mg/dL (70-99); HDL CHOLESTEROL 33 mg/dL (>40); LDL CHOLESTEROL 47 mg/dL (<100); POTASSIUM 4.4 mmol/L (3.5-5.1); SODIUM 140 mmol/L (136-145); TC:HDL 4.4 Ratio (Not establshd); TRIGLYCERIDE 320 mg/dL (<150); VLDL 64 mg/dL (<40)
[2020-08-20 05:19] LABS: HEMOGLOBIN 10.7 gm/dL (12.0-15.0)
[2020-08-20 05:20] LABS: SERUM ASSESSMENT CLEAR
--- NOTE | 2020-08-20 07:01 | NUR ---
PT IS ABLE TO COMMUNICATE HER NEEDS TO STAFF EFFECTIVELY. CURRENT PAIN MEDICATION REGIMEN HAS BEEN ADEQUATE FOR CONTROLLING HER PAIN UP TO THIS TIME. 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 PT'S VITALS HAVE BEEN STABLE AND SHE HAS BEEN ASYMPTOMATIC WHILE HAVING A LOW HR. GIL HAS BEEN PATENT UP TO THIS TIME.
[2020-08-20 08:48] VITALS: BP 150/44
[2020-08-20 11:58] VITALS: BP 150/48
[2020-08-20 14:35] LABS: ABSOLUTE EOSINOPHILS 0.3 thou/uL (0.0-0.7); ABSOLUTE LYMPHOCYTES 1.4 thou/uL (0.8-5.3); ABSOLUTE MONOCYTES 0.5 thou/uL (0.0-1.2); ABSOLUTE NEUTROPHILS 5.4 thou/uL (1.6-8.1); BASOPHILS 0.5 %; EOSINOPHILS 3.8 %; HEMATOCRIT 31.5 % (37.0-47.0); HEMOGLOBIN 10.6 gm/dL (12.0-15.0); MCH 29.1 pg (26.0-34.0); MCHC 33.5 g/dL (28.0-37.0); MCV 86.8 fL (80.0-100.0); MONOCYTES 6.5 %; MPV 7.3 fl. (7.2-11.1); NUCLEATED RBCS 0 /100WBC; PLATELET COUNT* 184 thou/uL (150-400); POLYS 71.2 %; RBC 3.63 mil/uL (4.20-5.00); RDW-CV 17.4 % (10.5-14.5); WBC 7.5 thou/uL (4.0-11.0)
[2020-08-20 17:06] VITALS: BP 125/54
[2020-08-20 20:54] VITALS: BP 168/58
[2020-08-21] VITALS (7 sets, daily range): BP systolic 147–185; BP diastolic 49–93
--- NOTE | 2020-08-21 13:18 | 2DMMODE ---
[place] [address] 2 D/M-MODE ECHOCARDIOGRAM Name: PATRIASNEHAFABRICE Room: [address] IN [facility].#: [id number] Admission: 08/19/20 Attend Phys: Howie James Discharge: Date of : 49 Date of Service: 08/21/20 1318 Report #: [id number] THIS REPORT FOR: cc: Sudheer Malhotra MD, Meng MD Holkins, John M. MD [facility] ~ APPROVED REPORT Study performed: 08/21/2020 10:31:52 EXAM: Comprehensive 2D, Doppler, and color-flow Echocardiogram Patient Location: In-Patient Room #: [facility] Status: routine BSA: 1.86 HR: 60 bpm BP: 185/62 mmHg Rhythm: Atrial Fibrillation Other Information Study Quality: Good Indications CVA/TIA Bradycardia Hypertension/HDD Echo Enhancing Agent Indication: Rule out Shunt Agent(s) / Amount(s) Used: Agitated Saline 10 cc 2D Dimensions IVSd: 16.58 (7-11mm) LVOT Diam: 20.12 (18-24mm) LVDd: 30.88 mm PWd: 13.27 (7-11mm) Ascending Ao: 33.01 (22-36mm) LVDs: 23.43 (25-40mm) Aortic Root: 31.81 mm Volumes Left Atrial Volume (Systole) LA ESV Index: 53.80 mL/m2 Aortic Valve AoV Peak Odilon.: 3.32 m/[place] [address] 2 D/M-MODE ECHOCARDIOGRAM Name: FABRICE TREVINO Room: [address]#: [id number] Admission: 08/19/20 Attend Phys: Howie James Discharge: Date of : 49 Date of Service: 08/21/20 1318 Report #: [id number] Peak Gr.: 43.99 mmHg LVOT Max P.93 mmHg AO Mean Gr.: 24.71 mmHg LVOT Mean P.79 mmHg LVOT Max V: 1.22 m/s AO V2 VTI: 67.51 cm LVOT Mean V: 0.76 m/s ROZ (VTI): 1.40 cm2 LVOT V1 VTI: 29.77 cm Left Ventricle The left ventricle is normal size. There is normal LV segmental wall motion. Moderate concentric left ventricular hypertrophy. Left ventricular systolic function is normal. The left ventricular ejection fraction is within the normal range. LVEF is 60-65%. This study is not technically sufficient to allow evaluation of the LV diastolic function due to atrial fibrillation. Right Ventricle The right ventricle is normal size. The right ventricular systolic function is normal. Atria Left atrium is moderately dilated. The interatrial septum is intact with no evidence for an atrial septal defect. The right atrium size is normal. Aortic Valve Moderate aortic valve sclerosis. No aortic regurgitation is present. Mild to moderate aortic stenosis. Mitral Valve There is mitral annular calcification. Mild mitral regurgitation. No evidence of mitral valve stenosis. Tricuspid Valve The tricuspid valve is normal in structure. Unable to assess PA pressure. Trace tricuspid regurgitation. Pulmonic Valve The pulmonary valve is normal in structure. Trace pulmonic regurgitation. Great Vessels The aortic root is normal in size. IVC is normal in size and collapses >50% with inspiration. Pericardium There is no pericardial [place] [address] 2 D/M-MODE ECHOCARDIOGRAM Name: FABRICE TREVINO Room: [address]#: [id number] Admission: 08/19/20 Attend Phys: Howie James Discharge: Date of : 49 Date of Service: 08/21/20 1318 Report #: [id number] <Conclusion> The left ventricle is normal size. Moderate concentric left ventricular hypertrophy. Left ventricular systolic function is normal. The left ventricular ejection fraction is within the normal range. LVEF is 60-65%. This study is not technically sufficient to allow evaluation of the LV diastolic function due to atrial fibrillation. The right ventricle is normal size. Left atrium is moderately dilated. Moderate aortic valve sclerosis. No aortic regurgitation is present. Mild to moderate aortic stenosis. There is mitral annular calcification. Mild mitral regurgitation. The tricuspid valve is normal in structure. IVC is normal in size and collapses >50% with inspiration. There is no pericardial effusion. There is normal LV segmental wall motion. The interatrial septum is intact with no evidence for an atrial septal defect. <ELECTRONICALLY SIGNED> By: Nasir Gipson MD, [facility] 08/21/20 1318 17 Nasir Gipson MD, FACC /INF
--- NOTE | 2020-08-21 15:42 | NUR ---
CM ASSESSMENT: PT IS KNOWN TO CM FROM PREVIOUS ADMISSIONS. PT IS A&O. PT RESIDES AT HOME WITH SPOUSE AND EXTENDED FAMILY. PT'S DTR ASSIST HER WITH HER ALD'S. PT USES A SCOOTER FOR MOBILITY. PT USES HOME OXYGEN AT [facility] PROVIDED BY [facility]. PT HAS HH HX WITH [facility], AND MAY BENEFIT FROM HH AT D/C. PT'S SPOUSE IS CURRENTLY INPT HERE AT THIS HOSPITAL. CM TO CONTACT PT'S DTR TO DISCUSS D/C PLANNING. CM WILL REMAIN AVAILABLE TO ASSIST AND FOLLOW NEEDED.
[2020-08-21 17:33] LABS: BE -4.4 mmol/L (-2 to +3); PCO2 41.8 mmHg (35.0-45.0); pH 7.326 (7.340-7.450)
[2020-08-21 17:34] LABS: PO2 131.4 mmHg (75.0-100.0)
--- NOTE | 2020-08-21 20:19 | NUR ---
Patient reported shortness of air. diaphorectic noted. Patient found with head of bed less than 30 degress. patient head of bed elevated. vitals within normal limits. MD made aware, chest xray obtained. RT aware. Patient placed on BIPAP. symtpoms resolved. call light in reach.
[2020-08-22] VITALS (7 sets, daily range): BP systolic 110–181; BP diastolic 38–79
[2020-08-22 04:16] LABS: CALCIUM 8.3 mg/dL (8.5-10.1); CREATININE 1.3 mg/dL (0.6-1.3); INR 1.5; POTASSIUM 5.3 mmol/L (3.5-5.1); PROTIME 15.9 Seconds (9.20-11.50)
[2020-08-22 04:47] LABS: HEMOGLOBIN 10.4 gm/dL (12.0-15.0); MCH 28.5 pg (26.0-34.0); MCHC 32.5 g/dL (28.0-37.0); MCV 87.8 fL (80.0-100.0); MPV 7.2 fl. (7.2-11.1); RBC 3.64 mil/uL (4.20-5.00); RDW-CV 16.9 % (10.5-14.5); WBC 9.4 thou/uL (4.0-11.0)
--- NOTE | 2020-08-22 08:05 | NUR ---
PT IS ABLE TO COMMUNICATE HER NEEDS TO STAFF EFFECTIVELY. SHE HAS DENIED THE NEED FOR PAIN MEDICATION UP TO 0700 THIS MORNING. SHE REFUSED THE BIPAP OVERNIGHT. GIL HAS BEEN PATENT UP TO 0700 TODAY. SENIOR IT ENGINEER TO SEE LATER TODAY.
--- NOTE | 2020-08-22 09:12 | NUR ---
WOUND NURSE: PATIENT SEEN FOR ASSESSMENT OF 2 SKIN LESIONS ONE ON EACH BUTTOCK. EACH PRESENT A RUPTURED BULLA WITH PARTIAL THICKNESS TISSUE LOSS AND MODERATE AMOUNT OF SEROUS DRAINAGE LEFT BUTTOCK MEASURES 3.3 X 1.0 X 0.1 CM. RIGHT BUTTOCK MEASURES 6.5 X 3.5 X 0.1 CM. PERIWOUND TISSUE WITH DARK REDNESS AND SCARRING. PATIENT REPOSITIONED ONTO HER LEFT SIDE. INSTRUCTED ON MEASURES TO PROMOTE HEALING AND PREVENT COMPLICAIONS. SHE STATES SHE UNDERSTANDS.
--- NOTE | 2020-08-22 15:00 | NUR ---
PLAN OF CARE: PHYSICIAN INFORMS THAT PT IS NOT MEDICALLY READY TO D/C AT THIS TIME. PT REMAINS TELE STATUS. PT CURRENTLY ON 3.5L O2, BUT USES 2L O2 PRIOR TO ADMIT. CM CONFIRMED THIS WITH PT'S GRANDDAUGHTER NEAL AND SHE INFORMS THAT SHE RESIDES AT HOME IN THE PT'S BASEMENT AND ASSIST HER WITH CARES. PT HAS A HOME CAREGIVER FROM 7AM-5PM DAILY, WHILE THE PT'S GRANDDAUGHTER IS AT WORK. PT IS ALSO CURRENTLY ON-SERVICE WITH [facility] (NURSE, PT, OT) AND PLAN IS FOR THE PT TO RESUME HH WITH [facility] AT D/C. NEAL INFORMS THAT SHE WILL NEED TO BE CONTACTED WHEN PT IS READY TO D/C SO THAT SHE CAN ARRANGE TRANSPORT FOR THE PT TO HOME WITH THE CAREGIVER. THEY HAVE A W/C VAN AND W/C TO BRING HER HOME IN. CM WILL REMAIN AVAILABLE TO ASSIST AND FOLLOW NEEDED. NEAL (PATIENT'S GRANDDAUGHTER) PHONE: [phone] [facility] PHONE: [phone] FAX: [phone]
[2020-08-23] VITALS (9 sets, daily range): BP systolic 109–180; BP diastolic 37–77
[2020-08-23 07:12] LABS: HEMATOCRIT 27.7 % (37.0-47.0); HEMOGLOBIN 9.3 gm/dL (12.0-15.0); MCH 29.1 pg (26.0-34.0); MCHC 33.6 g/dL (28.0-37.0); MCV 86.8 fL (80.0-100.0); MPV 6.9 fl. (7.2-11.1); RBC 3.19 mil/uL (4.20-5.00); RDW-CV 16.8 % (10.5-14.5); WBC 6.6 thou/uL (4.0-11.0)
[2020-08-23 07:27] LABS: CALCIUM 8.2 mg/dL (8.5-10.1); CREATININE 1.4 mg/dL (0.6-1.3); POTASSIUM 4.9 mmol/L (3.5-5.1)
--- NOTE | 2020-08-23 07:41 | NUR ---
PT IS ABLE TO COMMUNICATE HER NEEDS TO STAFF EFECTIVELY. CURRENT PAIN MEDICATION REGIMEN HAS BEEN ADEQUATE FOR CONTROLLING HER PAIN UP TO THIS TIME. GIL HAS BEEN PATENT UP TO 0700 TODAY. PT PLACED ON SPECIALTY BED LAST NIGHT; TOLERATED WELL.
--- NOTE | 2020-08-23 16:54 | NUR ---
PATIENT HAS REMAINED A&OX4, PLEASANT AND COOPERATIVE WITH CARES THIS SHIFT. LEFT SIDED HEMIPARESIS PRESENT D/T PREVIOUS STROKE. URINARY CATHETER IN PLACE TO DD, YELLOW URINE PRESENT IN COLLECTION BAG. MEDICATIONS ADMINISTERED ORDERED. CALL LIGHT AND FREQUENTLY USED ITEMS WITHIN REACH.
[2020-08-24 03:58] LABS: HEMATOCRIT 26.3 % (37.0-47.0); HEMOGLOBIN 8.7 gm/dL (12.0-15.0); MCH 28.8 pg (26.0-34.0); MCHC 33.2 g/dL (28.0-37.0); MCV 86.7 fL (80.0-100.0); MPV 7.3 fl. (7.2-11.1); RBC 3.03 mil/uL (4.20-5.00); WBC 5.9 thou/uL (4.0-11.0)
[2020-08-24 04:00] VITALS: BP 132/57
[2020-08-24 04:00] LABS: CALCIUM 8.4 mg/dL (8.5-10.1); CREATININE 1.5 mg/dL (0.6-1.3); POTASSIUM 4.7 mmol/L (3.5-5.1)
--- NOTE | 2020-08-24 06:56 | NUR ---
PT IS ABLE TO COMMUNICATE HER NEEDS TO STAFF EFFECTIVELY. CURRENT PAIN MEDICATION REGIMEN HAS BEEN ADEQUATE FOR CONTROLLING HER PAIN UP TO THIS TIME. GIL HAS BEEN PATENT UP TO THIS TIME. POSSIBLE DISCHARGE LATER TODAY.
[2020-08-24 08:00] VITALS: BP 139/59
[2020-08-24 12:00] VITALS: BP 135/40
--- NOTE | 2020-08-24 13:20 | NUR ---
Gave report on patient to day RN, patient resting in room, in bed. All meds given per MAR. Turn q 2, IV flushes. Patient A&O x4. Call light within reach.
--- NOTE | 2020-08-24 13:37 | NUR ---
PLAN OF CARE: PHYSICIAN INFORMS OF PLAN FOR THE PT TO POSSIBLY D/C TODAY PENDING CARDIOLOGY RECOMMENDATIONS. CM TO INFORM PT'S GRANDDAUGHTER OF THIS, SHE WILL NEED TO PREPARE THE PT'S CAREGIVER WELL ARRANGE TRANSPORTATION. PLAN FOR PT TO RESUME HH WITH [facility] AT D/C. CM WILL REMAIN AVAILABLE TO ASSIST AND FOLLOW NEEDED.
[2020-08-24 16:00] VITALS: BP 152/57
[2020-08-24 20:00] VITALS: BP 140/47
[2020-08-25] VITALS (7 sets, daily range): BP systolic 109–179; BP diastolic 33–66
--- NOTE | 2020-08-25 04:01 | NUR ---
ASSUMED PT CARE AT APPROX 1930. PT IS AWAKE AND ORIENTED X4, FORGETFUL AT TIMES. PT IS TRACING AFIB-RATE CONTROLLED- ON THE SENIOR BUSINESS CONSULTANT. PT IS NOT IN DISTRESS, NO DESATURATIONS NOTED ON 2L OF O2. PT DENEIS PAIN/DISCOMFORT AT THIS TIME. NO ACUTE CHANGES THIS SHIFT. CALL LIGHT WITHIN REACH. HIGH FALL PRECAUTIONS IN PLACE. HOURLY ROUNDING DONE FOR PT SAFETY.
[2020-08-25 09:06] LABS: INR 1.6; PROTIME 16.7 Seconds (9.20-11.50)
[2020-08-25] MEDS ORDERED: CARVEDILOL12.5 MG PO (12:21)
[2020-08-25] MEDS ORDERED: FUROSEMIDE 20 M20 MG PO (12:24)
[2020-08-25] MEDS ORDERED: AMARYL4 MG PO (12:43)
--- NOTE | 2020-08-25 12:43 | NUR ---
WOUND NURSE: ARRIVED IN PATIENT'S ROOOM TO CHANGE DRESSINGS TO BLE. PATIENT WAS SITTING UP IN HIS BEDSIDE CHAAIR WITH BIPAP ON AND TALKING TO ME. PATIENT REPORTED THAT HE HAD URINATED ON HIMSELF AND NEEDED TO BE CLEANSED. HANDED HIM IS O2 PER NC, THEN ASSISTED HIM BACK TO HIS BED USING HIS WALKER, THEN PLACED HIS LEGS ONTO THE BED. WENT TO HIS DOORWAY TO ASK FOR HELP PULLING HIM UP IN THE BED, TURN BACK AROUND AND PATIENT WAS CYANOTIC AND UNCONCIOUS. I CALLED FOR HELP STAT AND PATIENT WAS CODED.
[2020-08-25] MEDS ORDERED: FREESTYLE LANC1 EACH MISCELL (12:44)
[2020-08-25] MEDS ORDERED: LISINOPRIL20 MG PO (12:45)
[2020-08-25] MEDS ORDERED: ZOCOR 20 MG TAB20 M1 PO (12:46)
[2020-08-25] MEDS ORDERED: LANOXIN 0.25M0.25 M1 PO (12:48)
[2020-08-25] MEDS ORDERED: ZOFRAN 4 MG ORAL4 MG PO (12:50)
[2020-08-25] MEDS ORDERED: CLOTRIMAZOLE 1%15 G1 TOP (12:52)
--- NOTE | 2020-08-25 15:30 | NUR ---
PHYSICIAN INFORMS OF PLAN FOR PT TO D/C HOME WITH HH TODAY. [facility] PER PT AND HER GRANDDAUGHTER'S REQUEST, SHE WAS ON-SERVICE PRIOR TO ADMIT. CM FAXED DC HH ORDERS TO [facility]. PT'S CAREGIVER HERE AND WILL PROVIDE TRANSPORTATION HOME FOR THE PT. CM WILL REMAIN AVAILABLE TO ASSIST AND FOLLOW NEEDED.
--- NOTE | 2020-08-25 17:30 | NUR ---
RECEIVED REPORT AROUND 0715. ASSUMED CARE. VS AND ASSESSMENT CHARTED. IV INTACT THIS AM. HEART MONITOR ATTACHED THIS AM AFIB, CONTROLLED. MED LIST UPDATED. MEDS GIVEN PER APR. HOURLY ROUNDING PERFORMED. DISCHARGE ORDERS RECEIVED. DISCHARGE PACKET GONE OVER WITH PT AND FAMILY. COMMUNICATED UNDERSTANDING. SHOWED FAMILY HOW TO DO GIL CARE. PT LEFT VIA OWN WHEEL CHAIR WITH ALL BELONGINGS AND FAMILY OFF UNIT AT 1730. IV TAKEN OUT. HEART MONITOR OFF.
== END 2020-08-25 17:30 | disposition home health service (06) | DRG 291 ==
LOC: M.ERS 22:13 → M.2W 08-19 00:44 → M.TBA-ER 08-19 00:44 → M.2W 08-19 03:03
PROVIDERS: Internal Medicine; Personal Emergency Response Attendant; Registered Nurse; ADMIT Internal Medicine; ATTEND Internal Medicine
PROC: 5A09357 Assistance with Respiratory Ventilation, Less than 24 Consecutive Hours, Continuous Positive Airway Pressure (ICD-10-PCS; principal; 2020-08-21)
DX: I13.0 Hypertensive heart and chronic kidney disease with heart failure and stage 1 through stage 4 chronic kidney disease, or unspecified chronic kidney disease (principal); N17.0 Acute kidney failure with tubular necrosis; G93.41 Metabolic encephalopathy; I50.33 Acute on chronic diastolic (congestive) heart failure; J96.01 Acute respiratory failure with hypoxia; N39.0 Urinary tract infection, site not specified; I48.21 Permanent atrial fibrillation; I69.354 Hemiplegia and hemiparesis following cerebral infarction affecting left non-dominant side; R47.81 Slurred speech; E11.65 Type 2 diabetes mellitus with hyperglycemia; E87.5 Hyperkalemia; E78.00 Pure hypercholesterolemia, unspecified; R00.1 Bradycardia, unspecified; R31.9 Hematuria, unspecified; N18.9 Chronic kidney disease, unspecified; D64.9 Anemia, unspecified; E11.22 Type 2 diabetes mellitus with diabetic chronic kidney disease; I16.0 Hypertensive urgency; Z79.01 Long term (current) use of anticoagulants; Z88.2 Allergy status to sulfonamides; Z88.8 Allergy status to other drugs, medicaments and biological substances; Z91.041 Radiographic dye allergy status